=== PATIENT | female | born 1975 | race Caucasian/White ===

== ENCOUNTER 2020-08-09 17:10 | Emergency (ER) | payer OTHER, MEDICAID ==
[~2020-08-09] VITALS: Ht 160 cm; Wt 92.1 kg
[~2020-08-09 17:10] MED LIST: CIPROFLOXACIN500 M1 PO; LEVAQUIN 500 M500 M2 PO; NOHOMEMEDICATIONS; NORCO 5-325 TA1 EACH PO; PYRIDIUM200 M1 PO; VENTOLIN HFA 1818 GM INH
[2020-08-09] MEDS ORDERED: VALTREX1000 MG PO (18:11)
[2020-08-09 18:17] VITALS: BP 149/109
== END 2020-08-09 18:18 | disposition home or self-care (01) ==
LOC: M.ERS 17:10
DX: H92.03 Otalgia, bilateral (principal); L98.8 Other specified disorders of the skin and subcutaneous tissue; F17.210 Nicotine dependence, cigarettes, uncomplicated; Z98.890 Other specified postprocedural states; Z87.442 Personal history of urinary calculi

== ENCOUNTER 2020-11-20 21:09 | Emergency (ER) | payer OTHER, MEDICAID ==
[~2020-11-20] VITALS: Ht 160 cm; Wt 95.3 kg
[~2020-11-20 21:09] MED LIST changes: +VALTREX1000 MG PO
[2020-11-20 21:58] LABS: ABSOLUTE EOSINOPHILS 0.1 thou/uL (0.0-0.7); ABSOLUTE LYMPHOCYTES 3.3 thou/uL (0.8-5.3); ABSOLUTE MONOCYTES 0.6 thou/uL (0.0-1.2); BASOPHILS 0.2 %; EOSINOPHILS 1.6 %; HEMATOCRIT 38.8 % (37.0-47.0); LYMPHOCYTES 36.2 %; MCH 29.1 pg (26.0-34.0); MCHC 33.6 g/dL (28.0-37.0); MCV 86.6 fL (80.0-100.0); MONOCYTES 6.3 %; MPV 7.9 fl. (7.2-11.1); NUCLEATED RBCS 0 /100WBC; PLATELET COUNT* 228 thou/uL (150-400); POLYS 55.7 %; RBC 4.48 mil/uL (4.20-5.00); RDW-CV 14.6 % (10.5-14.5)
[2020-11-20 22:10] LABS: CALCIUM 8.4 mg/dL (8.5-10.1); POTASSIUM 3.8 mmol/L (3.5-5.1)
[2020-11-20 22:13] LABS: APTT 27.1 Seconds (25.0-31.3); INR 0.9
[2020-11-20 22:15] LABS: ALBUMIN 3.5 g/dL (3.4-5.0); TOTAL BILIRUBIN 0.2 mg/dL (<0.1-1.0); TOTAL PROTEIN 7.1 g/dL (6.4-8.2)
[2020-11-21 02:25] VITALS: BP 117/72
--- NOTE | 2020-11-21 15:46 | EKG ---
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1975 Requested By: Annette Schuler Order Number: [id number] MD: Titus Laguerre Measurements Intervals [place] Rate: 87 P: 47 [place]: 122 QRS: 27 QRSD: 103 T: -3 QT: 371 QTc: 447 Interpretive Statements Sinus rhythm RSR' in V1 or V2, right VCD Compared to ECG 02/15/2017 12:02:[address]-T changes have occurred Electronically Signed On 11-21-2020 15:46:43 CDT by Titus Laguerre [email or web address] <ELECTRONICALLY SIGNED> By: Titus Laguerre MD, [facility] 11/21/20 1546 11 11 Titus Laguerre MD, [facility] /EPI
--- NOTE | 2020-11-21 15:47 | EKG ---
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1975 Requested By: Annette Schuler Order Number: [id number] MD: Titus Laguerre Measurements Intervals [place] Rate: 81 P: 60 [place]: 129 QRS: 43 QRSD: 100 T: 19 QT: 376 QTc: 437 Interpretive Statements Sinus rhythm RSR' in V1 or V2, right VCD or RVH Compared to ECG 11/20/2020 21:12:18 Myocardial infarct finding no longer present Electronically Signed On 11-21-2020 15:46:52 CDT by Titus Laguerre [email or web address] <ELECTRONICALLY SIGNED> By: Titus aLguerre MD, [facility] 11/21/20 1546 14 14 Titus Laguerre MD, [facility] /EPI
== END 2020-11-21 02:25 | disposition home or self-care (01) ==
LOC: M.ERS 21:09
PROVIDERS: Personal Emergency Response Attendant
DX: R07.89 Other chest pain (principal); R06.02 Shortness of breath; M79.602 Pain in left arm; F17.210 Nicotine dependence, cigarettes, uncomplicated; Z98.890 Other specified postprocedural states; Z87.442 Personal history of urinary calculi; Z79.899 Other long term (current) drug therapy